=== PATIENT | female | born 1980 | race Caucasian/White ===

== ENCOUNTER 2025-03-02 21:37 | Emergency (ER) | payer MEDICARE, MEDICAID ==
[2025-03-02 21:49] LABS: BASOPHILS ABSOLUTE AUTO 0.02 10^3/uL (0.00-0.10); BASOPHILS PERCENT AUTO 0.3 % (0.0-1.0); EOSINOPHILS ABSOLUTE AUTO 0.03 10^3/uL (0.10-0.30); EOSINOPHILS PERCENT AUTO 0.4 % (1.0-3.0); IMMATURE GRAN ABSOLUTE AUTO 0.01 10^3/uL (0.00-0.04); IMMATURE GRAN PERCENT AUTO 0.1 % (0.0-0.4); LYMPHOCYTES ABSOLUTE AUTO 1.54 10^3/uL (1.00-4.00); LYMPHOCYTES PERCENT AUTO 21.6 % (20.0-40.0); MEAN PLATELET VOLUME 9.5 fL (7.4-10.4); MONOCYTES ABSOLUTE AUTO 0.52 10^3/uL (0.10-0.80); MONOCYTES PERCENT AUTO 7.3 % (2.0-8.0); NEUTROPHILS ABSOLUTE AUTO 5.02 10^3/uL (2.50-7.00); NEUTROPHILS PERCENT AUTO 70.3 % (50.0-70.0); PLATELET COUNT,PLT 363 10^3/uL (150-400); RED BLOOD CELL COUNT 4.15 10^6/uL (3.80-5.50); RED CELL DISTRIBUTION WIDTH 13.8 % (11.5-14.5); WHITE BLOOD CELL COUNT,WBC 7.14 10^3/uL (5.00-10.00)
[2025-03-02 22:02] LABS: ALANINE AMINOTRANSFERASE,ALT 27 U/L (14-63); ASPARTATE AMNIOTRANSFERASE,AST 16 U/L (15-37); BILIRUBIN TOTAL 0.3 mg/dL (0.2-1.0); BLOOD UREA NITROGEN,BUN 12 mg/dL (7-18); CARBON DIOXIDE,CO2 27.3 mmol/L (21.0-32.0); CHLORIDE,CL 103 mmol/L (98-107); CREATININE 0.48 mg/dL (0.51-1.17); ESTIMATED GFR 121 mL/min (>=60); GLUCOSE RANDOM 115 mg/dL (70-140); POTASSIUM,K 2.9 mmol/L (3.5-5.1); PROTEIN TOTAL,TP 8.1 g/dL (6.4-8.2); SODIUM,NA 142 mmol/L (136-145)
[2025-03-02 22:21] LABS: INR 0.9 (0.9-1.1); PTT,PARTIAL THROMBOPLSTIN TIME 23.8 SEC (21.6-32.4)
== END 2025-03-02 23:09 | disposition home or self-care (01) ==
LOC: KA.ED 21:37
DX: G40.909 Epilepsy, unspecified, not intractable, without status epilepticus (principal); G43.009 Migraine without aura, not intractable, without status migrainosus; Z88.8 Allergy status to other drugs, medicaments and biological substances; Z88.1 Allergy status to other antibiotic agents; Z88.5 Allergy status to narcotic agent; Z91.040 Latex allergy status; Z91.048 Other nonmedicinal substance allergy status; Z91.018 Allergy to other foods; Z79.82 Long term (current) use of aspirin; Z79.899 Other long term (current) drug therapy; W07.XXXA Fall from chair, initial encounter
CPT/HCPCS: 36415; 70450; 80053; 85025; 85610; 85730; 93010; 96374; 99284; 99285-25; J1171